=== PATIENT | male | born 1935 | race Caucasian/White ===

== ENCOUNTER 2018-09-12 16:36 | Observation (INO) | payer OTHER ==
[~2018-09-12] VITALS: Ht 177.8 cm; Wt 97.5 kg
[2018-09-12] MEDS ORDERED: GLUCAGON 1MG KIT 1 MG ML IM PRN (19:15)
[2018-09-12] MEDS ORDERED: DEXTROSE 50%-WATER 50 ML DISP.SYRIN IV PRN (19:15)
[2018-09-12 19:28] LABS: BASOPHILS % (AUTO) 0.2 % (0.0-5.0); EOSINOPHILS % (AUTO) 0.2 % (0.0-8.0); HEMATOCRIT 33.3 % (42-54); LYMPHOCYTES % (AUTO) 11.2 % (21.0-51.0); MEAN CORPUSCULAR HEMOGLOBIN 32.7 pg (27.0-33.0); MEAN CORPUSCULAR HGB CONC 34.8 g/dL (32.0-36.0); MEAN CORPUSCULAR VOLUME 93.8 fL (79-99); MONOCYTES % (AUTO) 9.5 % (3.0-13.0); NEUTROPHILS % (AUTO) 78.9 % (40.0-77.0); PLATELET COUNT (AUTO) 259 K/uL (130-400); RED BLOOD CELL COUNT(AUTO) 3.55 MIL/uL (4.50-6.20); RED CELL DISTRIBUTION WIDTH 13.4 % (11.0-15.5); WHITE BLOOD COUNT (AUTO) 10.7 K/uL (4.8-10.8)
[2018-09-12 19:43] LABS: PARTIAL THROMBOPLASTIN TIME 27.9 SEC (26.3-35.5); PROTHROMBIN TIME 10.5 SEC (9.6-11.6)
[2018-09-12 19:58] LABS: CREATININE 0.8 mg/dL (0.5-1.5); POTASSIUM 4.5 mmol/L (3.5-5.1)
[2018-09-12 19:58] LABS: HEMOGLOBIN A1C 7.5 % (4.0-6.0)
[2018-09-12 20:03] LABS: ALBUMIN 3.7 g/dL (3.5-5.0); BILIRUBIN,TOTAL 0.6 mg/dL (0.2-1.0); TOTAL PROTEIN, SERUM 6.9 g/dL (6.0-8.3)
[2018-09-12] MEDS: INSULIN HUMULIN R 100 UNIT/ML 3ML SQ SCH (21:00)
[2018-09-12] MEDS ORDERED: ENOXAPARIN SODIUM 100 MG/1 ML SQ ONE (21:01)
[2018-09-12] MEDS ORDERED: INSULIN HUMULIN R 100 UNIT/ML 3ML ONE (21:12)
[2018-09-12] MEDS ORDERED: NITROGLYCERIN 0.4 MG SL TAB SL PRN (21:30)
[2018-09-12] MEDS ORDERED: IPRATROPIUM/ALBUTEROL SULFATE 3 ML SOLUTION IH PRN (21:30)
[2018-09-12] MEDS ORDERED: ACETAMINOPHEN 325 MG TAB PO PRN (21:30)
[2018-09-12] MEDS ORDERED: ONDANSETRON HCL 4 MG/2 ML VIAL IV PRN (21:30)
[2018-09-12 22:20] VITALS: BP 143/80
[2018-09-12 23:30] LABS: TROPONIN I 0.14 ng/mL (0.00-0.06)
[2018-09-12 23:49] LABS: APPEARANCE,URINE Clear (CLEAR); BILIRUBIN,URINE Negative (NEGATIVE); COLOR,URINE Yellow (YELLOW); GLUCOSE, URINE (UA) Negative (NEGATIVE); KETONES,URINE Negative (NEGATIVE); LEUKOCYTE ESTERASE ,URINE Negative (NEGATIVE); NITRATE,URINE Negative (NEGATIVE); OCCULT BLOOD,URINE Negative (NEGATIVE); PROTEIN,URINE Negative (NEGATIVE); UROBILINOGEN,URINE 0.2 mg/dL (0.2-1.0)
[2018-09-13 00:52] VITALS: BP 122/62
[2018-09-13 01:05] LABS: AMPHET/METH SCREEN,URINE NEGATIVE (NEGATIVE); BARBITURATE SCREEN, URINE NEGATIVE (NEGATIVE); BENZODIAZEPINES SCREEN,URINE NEGATIVE (NEGATIVE); CANNABINOID SCREEN,URINE NEGATIVE (NEGATIVE); COCAINE SCREEN,URINE NEGATIVE (NEGATIVE); OPIATE SCREEN,URINE NEGATIVE (NEGATIVE); PHENCYCLIDINE SCREEN,URINE NEGATIVE (NEGATIVE)
[2018-09-13 04:13] VITALS: BP 140/73
[2018-09-13] MEDS: SODIUM CHLORIDE 0.9% 1000ML 1,000 ML IV SCH ×4 (04:30→19:00)
[2018-09-13 05:39] LABS: BASOPHILS % (AUTO) 0.3 % (0.0-5.0); EOSINOPHILS % (AUTO) 1.7 % (0.0-8.0); HEMATOCRIT 31.5 % (42-54); LYMPHOCYTES % (AUTO) 18.1 % (21.0-51.0); MEAN CORPUSCULAR HEMOGLOBIN 32.5 pg (27.0-33.0); MEAN CORPUSCULAR HGB CONC 34.3 g/dL (32.0-36.0); MEAN CORPUSCULAR VOLUME 94.7 fL (79-99); MONOCYTES % (AUTO) 8.2 % (3.0-13.0); NEUTROPHILS % (AUTO) 71.7 % (40.0-77.0); NUCLEATED RED BLOOD CELLS 0.1 % (0.0-0.19); PLATELET COUNT (AUTO) 204 K/uL (130-400); RED BLOOD CELL COUNT(AUTO) 3.32 MIL/uL (4.50-6.20); RED CELL DISTRIBUTION WIDTH 13.5 % (11.0-15.5)
[2018-09-13 06:04] LABS: ALBUMIN 3.4 g/dL (3.5-5.0); BILIRUBIN,TOTAL 0.6 mg/dL (0.2-1.0); CREATININE 0.8 mg/dL (0.5-1.5); POTASSIUM 4.3 mmol/L (3.5-5.1); TOTAL PROTEIN, SERUM 6.2 g/dL (6.0-8.3); TROPONIN I 0.17 ng/mL (0.00-0.06)
[2018-09-13] MEDS: INSULIN HUMULIN R 100 UNIT/ML 3ML SQ SCH ×3 (06:23→21:00)
[2018-09-13 07:00] VITALS: BP 146/75
[2018-09-13] MEDS: PANTOPRAZOLE SODIUM 40 MG TABLET.DR PO SCH (09:00)
[2018-09-13] MEDS: METOPROLOL TARTRATE 25 MG TAB PO SCH ×2 (09:00→21:19)
[2018-09-13] MEDS: ENOXAPARIN SODIUM 30 MG/0.3 ML SQ SCH (09:00)
[2018-09-13] MEDS: ASPIRIN 325MG EC TAB 325 MG TABLET.DR PO SCH (09:00)
[2018-09-13 11:00] VITALS: BP 138/71
[2018-09-13] MEDS ORDERED: REGADENOSON 0.4 MG/5 ML PF SYG IVP SCH (11:30)
[2018-09-13 20:21] VITALS: BP 141/82
[2018-09-14 00:22] VITALS: BP 141/72
[2018-09-14] MEDS ORDERED: ROSU5TAB11 PO (01:08)
[2018-09-14] MEDS ORDERED: TAMS0.4C32 PO (01:08)
[2018-09-14] MEDS ORDERED: BIOF1TAB8 PO (01:08)
[2018-09-14] MEDS ORDERED: RANI150T7 PO (01:08)
[2018-09-14] MEDS ORDERED: IBUP-2071 PO (01:08)
[2018-09-14] MEDS ORDERED: ADV500 IH (01:08)
[2018-09-14] MEDS ORDERED: GABA-529 PO (01:08)
[2018-09-14] MEDS ORDERED: OMEP20CA10 PO (01:08)
[2018-09-14] MEDS ORDERED: DUTA0.5C17 PO (01:08)
[2018-09-14] MEDS ORDERED: LOSA50TA25 PO (01:08)
[2018-09-14] MEDS ORDERED: SITA1TAB6 PO (01:08)
[2018-09-14 04:07] VITALS: BP 130/75
[2018-09-14 04:11] VITALS: BP 136/76
[2018-09-14] MEDS: INSULIN HUMULIN R 100 UNIT/ML 3ML SQ SCH (06:55)
[2018-09-14 07:00] VITALS: BP 151/86
[2018-09-14] MEDS: METOPROLOL TARTRATE 25 MG TAB PO SCH (09:24)
[2018-09-14] MEDS: PANTOPRAZOLE SODIUM 40 MG TABLET.DR PO SCH (09:24)
[2018-09-14] MEDS: ASPIRIN 325MG EC TAB 325 MG TABLET.DR PO SCH (09:25)
[2018-09-14] MEDS: ENOXAPARIN SODIUM 30 MG/0.3 ML SQ SCH (09:25)
[2018-09-14 12:30] VITALS: BP 134/94
== END 2018-09-14 12:05 | disposition home or self-care (01) ==
LOC: EDH 16:36 → EDHIP 19:19 → 3AH 21:50
PROVIDERS: ADMIT Hospitalist; ATTEND Hospitalist
DX: R07.89 Other chest pain (principal); I10 Essential (primary) hypertension; D64.9 Anemia, unspecified; E03.9 Hypothyroidism, unspecified; E11.9 Type 2 diabetes mellitus without complications; E78.00 Pure hypercholesterolemia, unspecified; I34.0 Nonrheumatic mitral (valve) insufficiency; J44.9 Chronic obstructive pulmonary disease, unspecified; K21.9 Gastro-esophageal reflux disease without esophagitis; E78.5 Hyperlipidemia, unspecified; Z86.79 Personal history of other diseases of the circulatory system; Z87.891 Personal history of nicotine dependence; Z79.899 Other long term (current) drug therapy
CPT/HCPCS: 36415 ×2; 71045; 78452; 80053 ×2; 80061; 80305; 81003; 82550 ×2; 82948 ×6; 83036; 83735; 83874 ×2; 84484 ×4; 85025 ×2; 85610; 85730; 86850; 86900; 86901; 93005 ×3; 93017; 93306; 94640; 94664; 96372; 99291; A9500 ×2; G0378 ×41; J1650; J1815; J2785; J7030 ×2; 96374

== ENCOUNTER 2018-12-06 06:42 | Observation (INO) | payer OTHER ==
[2018-12-04 15:50] VITALS: BP 122/72
[2018-12-04 16:02] LABS: BASOPHILS % (AUTO) 0.6 % (0.0-5.0); EOSINOPHILS % (AUTO) 4.4 % (0.0-8.0); HEMATOCRIT 36.4 % (42-54); LYMPHOCYTES % (AUTO) 25.2 % (21.0-51.0); MEAN CORPUSCULAR HEMOGLOBIN 32.5 pg (27.0-33.0); MEAN CORPUSCULAR VOLUME 95.8 fL (79-99); MONOCYTES % (AUTO) 8.8 % (3.0-13.0); PLATELET COUNT (AUTO) 251 K/uL (130-400); RED CELL DISTRIBUTION WIDTH 13.5 % (11.0-15.5); WHITE BLOOD COUNT (AUTO) 5.2 K/uL (4.8-10.8)
[2018-12-04 16:06] LABS: APPEARANCE,URINE Clear (CLEAR); BILIRUBIN,URINE Negative (NEGATIVE); COLOR,URINE Yellow (YELLOW); GLUCOSE, URINE (UA) Negative (NEGATIVE); KETONES,URINE Negative (NEGATIVE); LEUKOCYTE ESTERASE ,URINE Negative (NEGATIVE); NITRATE,URINE Negative (NEGATIVE); OCCULT BLOOD,URINE Negative (NEGATIVE); PH,URINE 7.5 (5.0-8.0); PROTEIN,URINE Negative (NEGATIVE)
[2018-12-04 16:19] LABS: PARTIAL THROMBOPLASTIN TIME 29.6 SEC (26.3-35.5); PROTHROMBIN TIME 10.5 SEC (9.6-11.6)
[2018-12-04 17:10] LABS: CREATININE 0.9 mg/dL (0.5-1.5); POTASSIUM 4.5 mmol/L (3.5-5.1)
--- NOTE | 2018-12-05 14:33 | NUR ---
LABS FAXED AND REPORTED ABNORMAL SODIUM LEVEL TO BRIGIDO TEJADA AT [facility]. SHE WILL INFORM Juana ACOSTA NP.
--- NOTE | 2018-12-05 16:17 | NUR ---
NO NEW ORDERS FOR NA 133 PER MARIPOSA JOHNSON FABRICATION SPECIALIST. OK TO PROCEED
[2018-12-06] VITALS (15 sets, daily range): BP systolic 128–160; BP diastolic 72–95
[~2018-12-06] VITALS: Ht 177.8 cm; Wt 95.3 kg
[~2018-12-06 06:42] MED LIST: ADV500 IH; BILB1CAP PO; CALCIUM PO; DUTA0.5C17 PO; GABA-529 PO; LEVO75 PO; LOSA50TA64 PO; MAGNESIUM PO; MELA5TAB14 PO; METF-446 PO; METO-408 PO; RANI150T7 PO; ROSU5TAB11 PO; SITA100T12 PO; TAMS0.4C32 PO; baclofen PO
[2018-12-06] MEDS ORDERED: SODIUM CHLORIDE 0.9% 1000ML 1,000 ML IV SCH (08:00)
[2018-12-06] MEDS ORDERED: CALC600T12 PO (08:13)
--- NOTE | 2018-12-06 08:14 | NUR ---
ASSESSMENT PT HERE FOR PROCEDURE. DENIES ANY DISCOMFORTS AT THIS TIME. HAS LARGE RED PATCH TO RIGHT FOREARM AND SPOTS ON LEFT FOREARM. STATES HES HAD THEM FOR A LONG TIME.
[2018-12-06] MEDS ORDERED: NITROGLYCERIN 5 MG/ML 10 ML VIAL IV ONE (12:27)
[2018-12-06] MEDS ORDERED: IOHEXOL 350 MG/ML 100ML INFUS..BTL IV ONE (12:27)
[2018-12-06] MEDS ORDERED: HEPARIN SODIUM 1000UNIT/ML 10ML VIAL ONE (12:27)
[2018-12-06] MEDS ORDERED: IOHEXOL-350 50ML VIAL IV ONE ×2 (12:28→13:20)
[2018-12-06] MEDS ORDERED: LIDOCAINE HCL 2% 20ML ONE (12:28)
--- NOTE | 2018-12-06 12:51 | NUR ---
PROCEDURE PT TAKEN TO PROCEDURE VIA BED BY CRITICAL CARE TECHNICIAN PERSONNEL Estefania KURTZ RN AND Naty RAMOS RN. PT DOING WELL. DENIES ANY SYMPTOMS.
[2018-12-06] MEDS ORDERED: ASPIRIN 325MG EC TAB 325 MG TABLET.DR PO ONE (13:57)
[2018-12-06] MEDS ORDERED: CLOPIDOGREL BISULFATE 300 MG TAB ONE (13:57)
[2018-12-06] MEDS ORDERED: MORPHINE SULFATE 5 MG/ML VIAL IVP SCH (14:15)
[2018-12-06] MEDS ORDERED: ONDANSETRON HCL 4 MG/2 ML VIAL IVP SCH (14:15)
[2018-12-06] MEDS ORDERED: MORPHINE SULFATE 4 MG/1ML SYG IVP SCH (14:15)
[2018-12-06] MEDS ORDERED: ONDANSETRON HCL 4 MG/2 ML VIAL IVP PRN (14:15)
[2018-12-06] MEDS ORDERED: ACETAMINOPHEN-CODEINE 300/30MG TAB PO PRN ×2 (14:15)
[2018-12-06] MEDS ORDERED: TEMAZEPAM 30 MG CAP PO PRN (14:15)
--- NOTE | 2018-12-06 14:43 | NUR ---
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 NO BLEEDING TO RT GROIN SHEATH SITE. DISTAL PEDAL PULSES PRESENT. NO CHEST PAIN
[2018-12-06] MEDS: BUDESONIDE 0.5 MG/2 ML INH IH SCH (18:08)
[2018-12-06] MEDS: ALBUTEROL SULFATE 0.083% 2.5 MG/3 ML INH IH SCH ×2 (18:08→23:27)
--- NOTE | 2018-12-06 19:50 | NUR ---
SHEATH SHEATH REMOVED AT 191 BY COLLEEN ALBA MANUAL PRESSURE HELD X 30MIN. DSTAT AND PRESSURE DRESSING USED. SITE SOFT TO TOUCH PT ENCOURAGED TO SPLINT SITE WHEN COUGHING VOICED UNDERSTANDING.
[2018-12-06] MEDS ORDERED: ACETAMINOPHEN 325 MG TAB ONE (20:42)
[2018-12-06] MEDS ORDERED: BACLOFEN PO SCH (21:00)
[2018-12-06] MEDS ORDERED: GABAPENTIN 100 MG CAPSULE PO SCH (21:00)
[2018-12-06] MEDS ORDERED: RANITIDINE HCL 15 MG/1 ML PO SCH (21:00)
[2018-12-06] MEDS ORDERED: METOPROLOL TARTRATE 25 MG TAB PO SCH (21:00)
--- NOTE | 2018-12-06 22:00 | NUR ---
STATUS NO CHANGE IN PT STATUS RIGHT GROIN DRESSING IS DRY AND INTACT PRESSURE DRESSING IN PLACE NO S/S OF BLEEDING NOTED. RIGHT FEMORAL SITE IS SOFT TO TOUCH.
--- NOTE | 2018-12-07 00:56 | NUR ---
PT STATED PAIN TO LOWER BACK DUE TO BEDREST SP LHC. STATED NO ALLERGIES TO OPIATES. PT STATES ONLY DISLIKES TO TAKE OPIATES. PAIN 07/12 STATED. TYLENOL #3 PRN AVAILABLE AND GIVEN TO PT.
[2018-12-07 03:45] VITALS: BP 133/68
[2018-12-07 04:09] LABS: HEMATOCRIT 31.3 % (42-54); MEAN CORPUSCULAR HEMOGLOBIN 32.6 pg (27.0-33.0); MEAN CORPUSCULAR HGB CONC 34.3 g/dL (32.0-36.0); PLATELET COUNT (AUTO) 232 K/uL (130-400); RED CELL DISTRIBUTION WIDTH 13.6 % (11.0-15.5); WHITE BLOOD COUNT (AUTO) 6.8 K/uL (4.8-10.8)
[2018-12-07 04:25] LABS: POTASSIUM 4.3 mmol/L (3.5-5.1)
--- NOTE | 2018-12-07 05:08 | NUR ---
RIGHT GROIN SITE NOTED TO BE SOFT AND MINOR TENDERNESS NOTED. DISCOLORATION AROUND SITE. NO LUMP NOTED. CONTINUES WITH PRESSURE DRESSING. ABLE TO LOWER EXTREMITIES AND PULSES NOTED.
[2018-12-07] MEDS ORDERED: LEVOTHYROXINE 75 MCG TABLET PO SCH (06:30)
[2018-12-07] MEDS ORDERED: ASPI-555 PO (06:35)
[2018-12-07] MEDS ORDERED: CLOP75TA32 PO (06:35)
--- NOTE | 2018-12-07 06:41 | NUR ---
DR.EVANS CORTES. IN PTS ROOM. STATED PT WOULD BE ABLE TO GET DISCHARGED AFTER BREAKFAST.
[2018-12-07] MEDS: ALBUTEROL SULFATE 0.083% 2.5 MG/3 ML INH IH SCH (07:03)
[2018-12-07] MEDS: BUDESONIDE 0.5 MG/2 ML INH IH SCH (07:04)
[2018-12-07 07:29] VITALS: BP 136/73
[2018-12-07] MEDS ORDERED: CLOPIDOGREL BISULFATE 75 MG TAB PO SCH (09:00)
[2018-12-07] MEDS ORDERED: BACLOFEN PO SCH (09:00)
[2018-12-07] MEDS ORDERED: PANTOPRAZOLE SODIUM 40 MG TABLET.DR PO SCH (09:00)
[2018-12-07] MEDS ORDERED: ASPIRIN 81MG TAB.CHEW PO SCH (09:00)
[2018-12-07] MEDS ORDERED: DUTASTERIDE PO SCH (09:00)
[2018-12-07] MEDS ORDERED: LINAGLIPTIN 5 MG TABLET PO SCH (09:00)
[2018-12-07] MEDS ORDERED: TAMSULOSIN HCL 0.4 MG CAP.ER.24H PO SCH (09:00)
[2018-12-07] MEDS ORDERED: CALCIUM CARBONATE 500 MG TABLET PO SCH (09:00)
[2018-12-07] MEDS ORDERED: LOSARTAN 50 MG TABLET PO SCH (09:00)
--- NOTE | 2018-12-07 14:31 | NUR ---
Patient discharged at 0840. Patient's catheterization site was soft with no bleeding. Patient was ambulating in room without assistance on room air. Discharge instructions were given. Patient read back new medications. Patient was also made aware of his followup appointment with Dr. Wilburn.
[2018-12-07] MEDS ORDERED: ATORVASTATIN CALCIUM 10 MG TABLET PO SCH (21:00)
== END 2018-12-07 09:00 | disposition home or self-care (01) ==
LOC: DAH 06:42 → DAHIP 06:43 → DAH 06:43 → 2BH 14:37
PROVIDERS: ADMIT Internal Medicine Cardiovascular Disease; ATTEND Internal Medicine Cardiovascular Disease
DX: I25.119 Atherosclerotic heart disease of native coronary artery with unspecified angina pectoris (principal); E11.9 Type 2 diabetes mellitus without complications; E78.5 Hyperlipidemia, unspecified; I10 Essential (primary) hypertension; I71.9 Aortic aneurysm of unspecified site, without rupture; J44.9 Chronic obstructive pulmonary disease, unspecified; Z88.8 Allergy status to other drugs, medicaments and biological substances; Z79.899 Other long term (current) drug therapy; Z79.01 Long term (current) use of anticoagulants
CPT/HCPCS: 36415 ×3; 71045; 80048 ×2; 80061; 81003; 82948; 85025; 85027; 85347; 85610; 85730 ×4; 93005 ×3; 93458; 94640 ×5; 94664; A4606; C1725; C1769; C1874; C1887; C1894; C9600; G0378 ×26; J1644 ×2; J3490 ×2; J7030; Q9965; Q9967 ×3

== ENCOUNTER 2019-10-26 12:17 | Emergency (ER) | payer OTHER ==
[~2019-10-26 12:17] MED LIST changes: +ASPI-555 PO; +CALC600T12 PO; -CALCIUM PO; +CLOP75TA32 PO; -MAGNESIUM PO; -ROSU5TAB11 PO; +ROSU5TAB12 PO
[2019-10-26 13:54] LABS: BASOPHILS % (AUTO) 0.7 % (0.0-5.0); EOSINOPHILS % (AUTO) 3.9 % (0.0-8.0); HEMATOCRIT 36.4 % (42-54); MEAN CORPUSCULAR HEMOGLOBIN 29.2 pg (27.0-33.0); MEAN CORPUSCULAR HGB CONC 32.7 g/dL (32.0-36.0); MEAN CORPUSCULAR VOLUME 89.4 fL (79-99); MONOCYTES % (AUTO) 10.6 % (3.0-13.0); NEUTROPHILS % (AUTO) 65.2 % (40.0-77.0); PLATELET COUNT (AUTO) 287 K/uL (130-400); RED BLOOD CELL COUNT(AUTO) 4.07 MIL/uL (4.50-6.20); RED CELL DISTRIBUTION WIDTH 14.7 % (11.0-15.5); WHITE BLOOD COUNT (AUTO) 9.9 K/uL (4.8-10.8)
[2019-10-26 14:00] LABS: INR 1.04 (0.85-1.15); PARTIAL THROMBOPLASTIN TIME 28.5 SEC (26.3-35.5); PROTHROMBIN TIME 10.9 SEC (9.6-11.6)
[2019-10-26 14:01] LABS: CREATININE 0.9 mg/dL (0.5-1.5); POTASSIUM 3.8 mmol/L (3.5-5.1)
[2019-10-26 14:06] LABS: ALBUMIN 3.2 g/dL (3.5-5.0); BILIRUBIN,DIRECT 0.1 mg/dL (0.0-0.3); BILIRUBIN,TOTAL 0.4 mg/dL (0.2-1.0); TOTAL PROTEIN, SERUM 6.4 g/dL (6.0-8.3)
[2019-10-26 14:38] LABS: B-TYPE NATRIURETIC PEPTIDE 77 pg/mL (0-100)
[2019-10-26] MEDS ORDERED: MECLIZINE HCL 25 MG TABLET ONE (15:56)
[2019-10-26] MEDS ORDERED: SODIUM CHLORIDE 0.9% 1000ML 1,000 ML IV ONE (16:03)
== END 2019-10-26 17:00 | disposition home or self-care (01) ==
LOC: EDH 12:17
DX: R55 Syncope and collapse (principal); E86.0 Dehydration; E11.9 Type 2 diabetes mellitus without complications; I10 Essential (primary) hypertension; K21.9 Gastro-esophageal reflux disease without esophagitis; J44.9 Chronic obstructive pulmonary disease, unspecified; I71.4 Abdominal aortic aneurysm, without rupture
CPT/HCPCS: 36415; 70450; 71045; 80048; 80076; 82550; 83880; 84484; 85025; 85610; 85730; 93005; 99284; J7030